=== PATIENT | male | born 1940 | race Caucasian/White ===

== ENCOUNTER 2021-05-26 18:39 | Emergency (ER) | payer OTHER, MEDICARE ==
[~2021-05-26 18:39] MED LIST: COUMADIN4 MG PO; LEVEMIR FL100 UNIT/1 SC; LISINOPRIL40 MG PO; METFORMIN HCL500 M1 PO
[2021-05-26 19:58] LABS: BASOPHIL 0.3 % (0-2); EOSINOPHIL 0.9 % (0-7); HCT 40.5 % (42.0-52.0); HGB 13.5 g/dl (13.2-18.0); LYMPHOCYTE 14.5 % (15-48); MCHC 33.3 g/dL (32.0-36.0); MCV 87.1 fL (78.0-100.0); MONOCYTE 4.5 % (0-12); MPV 11.5 fL (6.0-9.5); NEUTROPHIL 79.2 % (41-80); NRBC 0; PLT 163 K/uL (150-400); RBC 4.65 M/uL (4.70-6.00); RDW 13.2 % (11.5-14.0); WBC 10.1 K/uL (4.0-10.5)
[2021-05-26 20:08] LABS: ALBUMIN 3.6 g/dL (3.4-5.0); BILIRUBIN - TOTAL 0.4 mg/dL (0.2-1.0); BUN/CREAT RATIO (CALC) 11.5 RATIO; CREATININE 0.96 mg/dL (0.67-1.17); GLOBULIN (CALCULATION) 3.4 g/dL; POTASSIUM 4.2 mmol/L (3.5-5.1)
[2021-05-26 20:15] LABS: INR 1.04 (0.9-1.2); PTT 30.9 SECONDS (24.4-34.7)
== END 2021-05-26 23:10 | disposition other institution (70) ==
LOC: FER 18:39
PROVIDERS: Internal Medicine
DX: S12.100A Unspecified displaced fracture of second cervical vertebra, initial encounter for closed fracture (principal); S00.03XA Contusion of scalp, initial encounter; M25.562 Pain in left knee; R07.81 Pleurodynia; V89.2XXA Person injured in unspecified motor-vehicle accident, traffic, initial encounter
CPT/HCPCS: 36415; 70450; 71045; 72125; 73560; 80053; 85025; 85610; 85730; J1170

== ENCOUNTER → 2021-10-26 | Day surgery (SDC) | payer OTHER ==
[~2021-10-26] VITALS: Ht 182.9 cm; Wt 74.6 kg
[~2021-10-26] MED LIST changes: +ASPIRIN EC81 MG PO; +CARDIZEM CD120 MG PO; +CRESTOR10 MG PO; +FLOMAX0.4 MG PO; +GABAPENTIN300 MG PO; +IRON325 M1 PO; +PRILOSEC20 MG PO; +SEROQUEL25 MG PO; +SINGULAIR10 MG PO; +ZOLOFT50 MG PO
[2021-10-26 09:37] LABS: HCT 37.9 % (42.0-52.0); HGB 12.3 g/dl (13.2-18.0); MCH 27.6 pg (25.0-31.0); MCHC 32.5 g/dL (32.0-36.0); MPV 10.5 fL (6.0-9.5); RBC 4.46 M/uL (4.70-6.00); WBC 6.9 K/uL (4.0-10.5)
[2021-10-26 10:19] LABS: ALBUMIN 3.4 g/dL (3.4-5.0); BILIRUBIN - TOTAL 0.3 mg/dL (0.2-1.0); BUN/CREAT RATIO (CALC) 10.8 RATIO; CREATININE 0.74 mg/dL (0.67-1.17); GLOBULIN (CALCULATION) 3.4 g/dL; POTASSIUM 4.2 mmol/L (3.5-5.1); TOTAL PROTEIN 6.8 g/dL (6.4-8.2)
== END | disposition home or self-care (01) ==
LOC: FAS 09:00
PROVIDERS: Surgery
DX: D12.4 Benign neoplasm of descending colon (principal); K57.30 Diverticulosis of large intestine without perforation or abscess without bleeding; K29.50 Unspecified chronic gastritis without bleeding; K31.9 Disease of stomach and duodenum, unspecified; E78.5 Hyperlipidemia, unspecified; I10 Essential (primary) hypertension; E11.9 Type 2 diabetes mellitus without complications; G30.9 Alzheimer's disease, unspecified; F02.80 Dementia in other diseases classified elsewhere, unspecified severity, without behavioral disturbance, psychotic disturbance, mood disturbance, and anxiety; Z87.891 Personal history of nicotine dependence; Z90.49 Acquired absence of other specified parts of digestive tract; Z79.82 Long term (current) use of aspirin; Z79.4 Long term (current) use of insulin; Z79.899 Other long term (current) drug therapy
CPT/HCPCS: 36415; 80053; J2704; J7120